=== PATIENT | female | born 2000 | race Two or more races ===

== ENCOUNTER 2022-12-22 12:26 | Outpatient (CLI) | payer OTHER, SELFPAY ==
[2022-12-22 14:21] LABS: HIV 1/2 Ab P24 Ag Result Negative (Negative)
[2022-12-22 17:06] LABS: Rapid Plasma Reagin Non-Reactive (NonReactive)
[2022-12-22 18:15] LABS: Hepatitis B Surface Antigen Negative (Negative)
[2022-12-22 18:20] LABS: HAV RESULT Negative (Negative); Hepatitis B Core IgM Result Negative (Negative)
[2022-12-22 18:32] LABS: Hepatitis C Virus Antibody Negative (Negative)
== END 2022-12-22 12:27 | disposition home or self-care (01) ==
PROVIDERS: PCP Clinical Nurse Specialist; Visit Provider Student in an Organized Health Care Education/Training Program
DX: Z20.2 Contact with and (suspected) exposure to infections with a predominantly sexual mode of transmission (principal)
CPT/HCPCS: 36415; 80074; 86592; 86695; 86696; 86703; G0432